=== PATIENT | female | born 1955 | race African-American/Black ===

== ENCOUNTER 2024-03-09 14:51 | Inpatient (IN) | payer OTHER, MEDICAID ==
[~2024-03-09] VITALS: Ht 167.6 cm; Wt 80.7 kg
[2024-03-09 17:05] LABS: BASOPHILS % (AUTO) 0.7 % (0.0-2.0); EOSINOPHILS # (AUTO) 0.3 K/uL (0.0-0.7); EOSINOPHILS % (AUTO) 5.4 % (0.0-6.0); HEMATOCRIT 44 % (39-51); HEMOGLOBIN 13.7 g/dL (13.5-17.5); LYMPHOCYTES # (AUTO) 1.8 K/uL (0.8-4.8); LYMPHOCYTES % (AUTO) 29.7 % (20.0-44.0); MEAN CORPUSCULAR HEMOGLOBIN 28 PG (26.0-33.0); MEAN CORPUSCULAR HGB CONC 32 g/dl (31.0-36.0); MEAN CORPUSCULAR VOLUME 89 fL (80-96); MONOCYTES # (AUTO) 0.4 K/uL (0.1-1.30); MONOCYTES % (AUTO) 7.1 % (2.0-12.0); NEUTROPHILS # (AUTO) 3.5 K/uL (1.8-8.9); NEUTROPHILS % (AUTO) 57.1 % (43.0-81.0); PLATELET COUNT (AUTO) 202 K/uL (150-450); RED BLOOD CELL COUNT(AUTO) 4.88 MIL/uL (4.5-6.0); RED CELL DISTRIBUTION WIDTH 15.6 % (11.5-15.0)
[2024-03-09 17:15] LABS: CARBON DIOXIDE 30 mmol/L (21-32); CHLORIDE 110 mmol/L (98-107); CREATININE 1.2 mg/dL (0.6-1.3); GLUCOSE 90 mg/dL (74-106); POTASSIUM 4.1 mmol/L (3.5-5.1); SODIUM SERUM 146 mmol/L (136-145); UREA NITROGEN, BLOOD 12 mg/dL (7-18)
[2024-03-09 17:16] LABS: CALCIUM, SERUM 9.3 mg/dL (8.5-10.1)
[2024-03-09 17:28] LABS: NT-PRO BNP 71 pg/mL (0-125)
[2024-03-09 18:33] LABS: APPEARANCE,URINE Cloudy (CLEAR); BILIRUBIN,URINE SMALL (NEGATIVE); BLOOD, URINE Trace-intact Ery/uL (NEGATIVE); COLOR,URINE YELLOW (YELLOW); KETONES,URINE 40 mg/dL (NEGATIVE); LEUKOCYTE ESTERASE ,URINE Small (NEGATIVE); NITRITE, URINE Negative (NEGATIVE); PH,URINE 5.5 (5.0-8.0); PROTEIN,URINE Trace mg/dl (NEGATIVE); UGLUCOSE Negative (NEGATIVE); UROBILINOGEN,URINE 0.2 EU/dL (0.2)
[2024-03-09] MEDS ORDERED: QUET50TA PO (19:07)
[2024-03-09] MEDS ORDERED: CHOL500062 PO (19:07)
[2024-03-09] MEDS ORDERED: LEVE500T9 PO (19:07)
[2024-03-09] MEDS ORDERED: METO25TA20 PO (19:07)
[2024-03-09] MEDS ORDERED: ASCO500T10 PO (19:07)
[2024-03-09] MEDS ORDERED: ACET325T53 PO (19:07)
[2024-03-09 19:35] LABS: ADD URINE CULTURE YES; BACTERIA,URINE 1+ /HPF (None Seen)
[2024-03-09] MEDS ORDERED: CEFTRIAXONE 1GM BAG (ER ONLY) 50 ML IV ONE (20:34)
[2024-03-09] MEDS: CEFTRIAXONE 1GM BAG (ER ONLY) 1 GM/50 ML PIGGYBACK IV ONE (20:39)
[2024-03-09] MEDS ORDERED: ONDANSETRON HCL/PF 4 MG/2 ML VIAL IVP PRN (21:30)
[2024-03-09] MEDS ORDERED: Z GUARD REMEDY 4 OZ OINT TP PRN (21:30)
[2024-03-09] MEDS: IV NS 0.9% 500 ML IV ONE (21:30)
[2024-03-09] MEDS ORDERED: MAG HYDROX/AL HYDROX/SIMETH 30 ML UDC PO PRN (21:30)
[2024-03-09] MEDS ORDERED: MAGNESIUM HYDROXIDE 30 ML UDC PO PRN (21:30)
[2024-03-09 22:15] VITALS: BP 162/69; TEMP 98.2; O2SAT 100
[2024-03-09] MEDS: IV 1/2NS 1000 ML 1,000 ML IV ONE (22:43)
[2024-03-09] MEDS: hydrALAZINE HCL IV 20 MG VIAL IV PRN (23:11)
[2024-03-10] VITALS: BP 144/62; O2SAT 100
[2024-03-10] MEDS: OLANZAPINE 10 MG VIAL IM ONE ×2 (01:31→23:23)
[2024-03-10 06:28] LABS: BASOPHILS # (AUTO) 0.1 K/uL (0.0-0.2); BASOPHILS % (AUTO) 0.8 % (0.0-2.0); EOSINOPHILS # (AUTO) 0.4 K/uL (0.0-0.7); EOSINOPHILS % (AUTO) 5.7 % (0.0-6.0); HEMATOCRIT 45 % (33-45); HEMOGLOBIN 14.1 g/dL (11.5-14.8); LYMPHOCYTES # (AUTO) 2.5 K/uL (0.8-4.8); LYMPHOCYTES % (AUTO) 37.3 % (20.0-44.0); MEAN CORPUSCULAR HEMOGLOBIN 28 PG (26.0-33.0); MEAN CORPUSCULAR HGB CONC 32 g/dl (31.0-36.0); MEAN CORPUSCULAR VOLUME 88 fL (82-100); MONOCYTES # (AUTO) 0.5 K/uL (0.1-1.30); MONOCYTES % (AUTO) 7.5 % (2.0-12.0); NEUTROPHILS # (AUTO) 3.3 K/uL (1.8-8.9); NEUTROPHILS % (AUTO) 48.7 % (43.0-81.0); PLATELET COUNT (AUTO) 197 K/uL (150-450); RED CELL DISTRIBUTION WIDTH 15.8 % (11.5-15.0); WHITE BLOOD COUNT (AUTO) 6.8 K/uL (4.3-11.0)
[2024-03-10 07:05] LABS: CALCIUM, SERUM 9.4 mg/dL (8.5-10.1); CREATININE 0.8 mg/dL (0.6-1.3); MAGNESIUM 2.4 mg/dL (1.8-2.4); PHOSPHORUS 3.3 mg/dL (2.5-4.9); POTASSIUM 3.9 mmol/L (3.5-5.1)
[2024-03-10 08:00] VITALS: BP 126/70; TEMP 98.2; O2SAT 98
[2024-03-10] MEDS: ENOXAPARIN SODIUM 40 MG/0.4 ML DISP.SYRIN SQ SCH (09:00)
[2024-03-10] MEDS: METOPROLOL TARTRATE 25 MG TABLET PO SCH (09:00)
[2024-03-10] MEDS: LEVETIRACETAM (250 MG) 250 MG TABLET PO SCH (09:00)
[2024-03-10] MEDS: CHOLECALCIFEROL 1,000 UNIT TABLET (VIT D3) PO SCH (09:00)
[2024-03-10] MEDS: QUETIAPINE FUMARATE 25 MG TABLET PO SCH (09:00)
[2024-03-10] MEDS: ASCORBIC ACID 500 MG TABLET PO SCH (09:00)
[2024-03-10] MEDS: PANTOPRAZOLE 40 MG VIAL IV SCH (09:43)
[2024-03-10] MEDS: CEFTRIAXONE 1 G in IV D5W 50 ML IV SCH (10:41)
[2024-03-10 16:00] VITALS: BP 128/68; TEMP 99.9; O2SAT 98
[2024-03-10 16:31] VITALS: BP 128/68; TEMP 99.9; O2SAT 98
[2024-03-10] MEDS: ACETAMINOPHEN 325 MG TABLET PO PRN (16:53)
[2024-03-10 17:30] VITALS: TEMP 98.2
[2024-03-10 20:00] VITALS: BP 124/73; TEMP 98.1; O2SAT 99
[2024-03-11 07:38] LABS: CALCIUM, SERUM 9.2 mg/dL (8.5-10.1); CREATININE 0.7 mg/dL (0.6-1.3); POTASSIUM 3.4 mmol/L (3.5-5.1)
[2024-03-11 08:13] LABS: BASOPHILS % (AUTO) 0.6 % (0.0-2.0); EOSINOPHILS # (AUTO) 0.4 K/uL (0.0-0.7); EOSINOPHILS % (AUTO) 6.5 % (0.0-6.0); HEMATOCRIT 42 % (33-45); HEMOGLOBIN 13.2 g/dL (11.5-14.8); LYMPHOCYTES # (AUTO) 2.7 K/uL (0.8-4.8); LYMPHOCYTES % (AUTO) 46.2 % (20.0-44.0); MEAN CORPUSCULAR HEMOGLOBIN 28 PG (26.0-33.0); MEAN CORPUSCULAR HGB CONC 32 g/dl (31.0-36.0); MEAN CORPUSCULAR VOLUME 88 fL (82-100); MONOCYTES # (AUTO) 0.4 K/uL (0.1-1.30); MONOCYTES % (AUTO) 6.6 % (2.0-12.0); NEUTROPHILS # (AUTO) 2.4 K/uL (1.8-8.9); NEUTROPHILS % (AUTO) 40.1 % (43.0-81.0); PLATELET COUNT (AUTO) 185 K/uL (150-450); RED BLOOD CELL COUNT(AUTO) 4.77 MIL/uL (4.0-5.2); WHITE BLOOD COUNT (AUTO) 5.9 K/uL (4.3-11.0)
[2024-03-11] MEDS: POTASSIUM CHLORIDE 20 MEQ TAB.PRT.SR PO ONE (10:02)
[2024-03-11] MEDS: QUETIAPINE FUMARATE 25 MG TABLET PO SCH (17:05)
[2024-03-11 20:00] VITALS: BP 144/85; TEMP 97.7; O2SAT 99
[2024-03-12] MEDS: QUETIAPINE FUMARATE 25 MG TABLET PO PRN (02:28)
[2024-03-12 08:00] VITALS: BP 112/51; TEMP 97.5; O2SAT 99
[2024-03-12] MEDS: QUETIAPINE FUMARATE 25 MG TABLET PO SCH (08:43)
[2024-03-12] MEDS: PANTOPRAZOLE 40 MG TABLET.DR PO SCH (08:44)
[2024-03-12] MEDS ORDERED: POTASSIUM CHLORIDE 20 MEQ TAB.PRT.SR PO ONE (09:30)
[2024-03-12] MEDS ORDERED: Quetiapine Fumarate PO ×3 (09:30)
[2024-03-12 10:48] LABS: BASOPHILS % (AUTO) 0.9 % (0.0-2.0); EOSINOPHILS # (AUTO) 0.4 K/uL (0.0-0.7); EOSINOPHILS % (AUTO) 6.8 % (0.0-6.0); HEMATOCRIT 44 % (33-45); HEMOGLOBIN 14.1 g/dL (11.5-14.8); LYMPHOCYTES # (AUTO) 2.5 K/uL (0.8-4.8); LYMPHOCYTES % (AUTO) 46.6 % (20.0-44.0); MEAN CORPUSCULAR HEMOGLOBIN 28 PG (26.0-33.0); MEAN CORPUSCULAR HGB CONC 32 g/dl (31.0-36.0); MEAN CORPUSCULAR VOLUME 87 fL (82-100); MONOCYTES # (AUTO) 0.4 K/uL (0.1-1.30); MONOCYTES % (AUTO) 6.9 % (2.0-12.0); NEUTROPHILS # (AUTO) 2.1 K/uL (1.8-8.9); NEUTROPHILS % (AUTO) 38.8 % (43.0-81.0); PLATELET COUNT (AUTO) 171 K/uL (150-450); RED BLOOD CELL COUNT(AUTO) 5.08 MIL/uL (4.0-5.2); RED CELL DISTRIBUTION WIDTH 15.4 % (11.5-15.0); WHITE BLOOD COUNT (AUTO) 5.3 K/uL (4.3-11.0)
[2024-03-12 10:53] LABS: CALCIUM, SERUM 8.8 mg/dL (8.5-10.1); CREATININE 0.8 mg/dL (0.6-1.3); POTASSIUM 3.6 mmol/L (3.5-5.1)
[2024-03-12] MEDS: POTASSIUM CHLORIDE 20 MEQ TAB.PRT.SR PO ONE (12:45)
[2024-03-12 16:00] VITALS: BP 133/67; TEMP 98.1; O2SAT 99
[2024-03-12 20:00] VITALS: BP 141/65; TEMP 98.1; O2SAT 96
[2024-03-13 08:00] VITALS: BP 132/58; TEMP 98.5; O2SAT 97
[2024-03-13 16:00] VITALS: BP 92/54; TEMP 97.9; O2SAT 97
[2024-03-13] MEDS: QUETIAPINE FUMARATE 25 MG TABLET PO SCH ×2 (17:03→22:05)
[2024-03-13 22:28] VITALS: BP 146/57; TEMP 98.4; O2SAT 100
[2024-03-14 06:39] LABS: BASOPHILS % (AUTO) 0.9 % (0.0-2.0); EOSINOPHILS # (AUTO) 0.3 K/uL (0.0-0.7); EOSINOPHILS % (AUTO) 6.1 % (0.0-6.0); HEMATOCRIT 42 % (33-45); HEMOGLOBIN 13.3 g/dL (11.5-14.8); LYMPHOCYTES # (AUTO) 2.8 K/uL (0.8-4.8); LYMPHOCYTES % (AUTO) 52.2 % (20.0-44.0); MEAN CORPUSCULAR HEMOGLOBIN 28 PG (26.0-33.0); MEAN CORPUSCULAR HGB CONC 32 g/dl (31.0-36.0); MEAN CORPUSCULAR VOLUME 87 fL (82-100); MONOCYTES # (AUTO) 0.3 K/uL (0.1-1.30); MONOCYTES % (AUTO) 5.4 % (2.0-12.0); NEUTROPHILS # (AUTO) 1.9 K/uL (1.8-8.9); NEUTROPHILS % (AUTO) 35.4 % (43.0-81.0); PLATELET COUNT (AUTO) 176 K/uL (150-450); RED BLOOD CELL COUNT(AUTO) 4.78 MIL/uL (4.0-5.2); RED CELL DISTRIBUTION WIDTH 15.6 % (11.5-15.0); WHITE BLOOD COUNT (AUTO) 5.3 K/uL (4.3-11.0)
[2024-03-14 06:58] LABS: CREATININE 0.9 mg/dL (0.6-1.3); POTASSIUM 3.3 mmol/L (3.5-5.1)
[2024-03-14] MEDS: POTASSIUM CHLORIDE 20 MEQ TAB.PRT.SR PO SCH (10:04)
[2024-03-14 19:53] VITALS: BP 136/67; TEMP 97.9
[2024-03-15 04:25] VITALS: BP 136/67; TEMP 97.9; O2SAT 100
[2024-03-15 20:00] VITALS: BP 151/62; TEMP 97.7; O2SAT 100
[2024-03-15 20:23] VITALS: BP 151/62; TEMP 97.7; O2SAT 100
[2024-03-16 08:00] VITALS: BP 151/64; TEMP 99.1; O2SAT 99
[2024-03-16 16:00] VITALS: BP 122/81; TEMP 98.6; O2SAT 100
[2024-03-16] MEDS: CEFDINIR 300 MG CAPSULE PO SCH (21:41)
[2024-03-17] MEDS ORDERED: CEFD300C3 PO (09:29)
[2024-03-17 20:00] VITALS: BP 117/52; TEMP 97.9; O2SAT 98
[2024-03-18 15:34] LABS: BASOPHILS % (AUTO) 0.3 % (0.0-2.0); EOSINOPHILS # (AUTO) 0.4 K/uL (0.0-0.7); EOSINOPHILS % (AUTO) 5.9 % (0.0-6.0); HEMATOCRIT 42 % (33-45); HEMOGLOBIN 13.3 g/dL (11.5-14.8); LYMPHOCYTES # (AUTO) 2.4 K/uL (0.8-4.8); LYMPHOCYTES % (AUTO) 39.6 % (20.0-44.0); MEAN CORPUSCULAR HEMOGLOBIN 28 PG (26.0-33.0); MEAN CORPUSCULAR HGB CONC 32 g/dl (31.0-36.0); MEAN CORPUSCULAR VOLUME 88 fL (82-100); MONOCYTES # (AUTO) 0.4 K/uL (0.1-1.30); NEUTROPHILS % (AUTO) 48.2 % (43.0-81.0); PLATELET COUNT (AUTO) 176 K/uL (150-450); RED BLOOD CELL COUNT(AUTO) 4.76 MIL/uL (4.0-5.2); RED CELL DISTRIBUTION WIDTH 15.5 % (11.5-15.0); WHITE BLOOD COUNT (AUTO) 6.2 K/uL (4.3-11.0)
[2024-03-18 16:05] LABS: CALCIUM, SERUM 9.3 mg/dL (8.5-10.1); POTASSIUM 3.6 mmol/L (3.5-5.1)
[2024-03-18 20:00] VITALS: BP 128/67; TEMP 98; O2SAT 96
[2024-03-19 08:00] VITALS: BP 144/92; TEMP 98.1; O2SAT 96
[2024-03-19 16:00] VITALS: BP 150/64; TEMP 97.9; O2SAT 97
[2024-03-20 08:00] VITALS: BP 127/49; TEMP 97.9; O2SAT 100
[2024-03-20 16:00] VITALS: BP 131/79; TEMP 98.1; O2SAT 100
[2024-03-21 08:00] VITALS: BP 160/78; TEMP 97.5; O2SAT 98
[2024-03-21 16:00] VITALS: BP 125/55; TEMP 97.5; O2SAT 100
[2024-03-21 20:00] VITALS: BP 125/56; TEMP 97.9; O2SAT 98
[2024-03-22 08:00] VITALS: BP 125/98; TEMP 98.1; O2SAT 100
[2024-03-22 09:19] VITALS: BP 125/88; TEMP 98.1; O2SAT 98
[2024-03-22 16:00] VITALS: BP 153/71; TEMP 97.9; O2SAT 100
[2024-03-22 20:00] VITALS: BP 126/98; TEMP 97.6; TEMP 97.8; O2SAT 100
[2024-03-23 08:00] VITALS: BP_SYST 115; BP_DIAS 48; BP_DIAS 50; TEMP 97.9; O2SAT 97
[2024-03-23 16:00] VITALS: BP 153/75; TEMP 97.9; O2SAT 99
[2024-03-24 08:00] VITALS: BP 147/72; TEMP 97.3; O2SAT 100
[2024-03-24 16:00] VITALS: BP 123/91; O2SAT 100
[2024-03-24 17:41] VITALS: BP 123/91
[2024-03-24] MEDS: QUETIAPINE FUMARATE 25 MG TABLET PO ONE (17:42)
== END 2024-03-24 18:57 | disposition still patient (30) | DRG 422 ==
LOC: ER 14:55 → EDSEX 14:55 → MED 21:04
PROVIDERS: ATTEND Nurse Practitioner Acute Care
DX: E86.0 Dehydration (principal); G93.41 Metabolic encephalopathy; D68.59 Other primary thrombophilia; E87.0 Hyperosmolality and hypernatremia; N39.0 Urinary tract infection, site not specified; F25.9 Schizoaffective disorder, unspecified; G40.909 Epilepsy, unspecified, not intractable, without status epilepticus; Z86.73 Personal history of transient ischemic attack (TIA), and cerebral infarction without residual deficits; Z93.1 Gastrostomy status; I10 Essential (primary) hypertension; R13.10 Dysphagia, unspecified; F41.9 Anxiety disorder, unspecified; Z91.018 Allergy to other foods; R53.1 Weakness; Z79.899 Other long term (current) drug therapy; Z74.01 Bed confinement status; B96.89 Other specified bacterial agents as the cause of diseases classified elsewhere; B96.20 Unspecified Escherichia coli [E. coli] as the cause of diseases classified elsewhere; B95.2 Enterococcus as the cause of diseases classified elsewhere; R41.9 Unspecified symptoms and signs involving cognitive functions and awareness; R41.0 Disorientation, unspecified
CPT/HCPCS: 36415; 71045-TC; 80048-TC; 81001; 83735-TC; 83880; 84100-TC; 84484-TC; 85025-TC; 87086-TC; 92526; 92611-TC; 97110-TC; 97112-TC; 97116-TC; 97530-TC; 97535-TC; A4223; A6253; G0378; J0360; J0696; J1650; J2470; J3490; J7060

== ENCOUNTER 2024-05-28 10:22 | Emergency (ER) | payer MEDICAID, OTHER ==
[~2024-05-28] VITALS: Ht 167.6 cm; Wt 90.7 kg
[~2024-05-28 10:22] MED LIST: ACET325T53 PO; ASCO500T10 PO; CHOL500062 PO; LEVE500T9 PO; METO25TA20 PO; Quetiapine Fumarate PO
[2024-05-28 10:36] VITALS: BP 149/88; TEMP 98.3; O2SAT 99
[2024-05-28] MEDS ORDERED: LEVE500T20 PO (11:00)
[2024-05-28] MEDS ORDERED: LEVETIRACETAM (250 MG) 250 MG TABLET ONE (11:06)
[2024-05-28] MEDS: LEVETIRACETAM (250 MG) 250 MG TABLET PO ONE (11:35)
== END 2024-05-28 11:47 | disposition home or self-care (01) ==
LOC: ER 10:32
DX: G40.909 Epilepsy, unspecified, not intractable, without status epilepticus (principal); I10 Essential (primary) hypertension; Z79.899 Other long term (current) drug therapy; Z86.73 Personal history of transient ischemic attack (TIA), and cerebral infarction without residual deficits; Z93.1 Gastrostomy status; Z98.890 Other specified postprocedural states